=== PATIENT | male | born 1970 | race Caucasian/White ===

== ENCOUNTER 2016-08-11 21:32 | Emergency (ER) | payer MEDICAID ==
[2016-08-11 21:48] VITALS: RESP 16; TEMP 98.4
--- NOTE | 2016-08-11 23:11 | EDPHY ---
H & P Stated Complaint: psych eval Time Seen by Provider: 08/11/16 22:57 HPI/ROS: HPI The patient presents with concern about his medications. Earlier this morning, he was dismissed from his psychiatrist practice, he says he is not sure why and this was somewhat abrupt to him. They were working on some medication changes and he is not sure how to proceed. He has been on Lamictal with an increased dose in the last month from 200 mg to 300 mg. He also is on trazodone 50 mg, though previously has been on 100 mg. He is wanting to know if he can increase his trazodone dose as he feels he with this would help his symptoms of increased agitation. He denies any SI or HI. He has been referred to a new psychiatrist.. REVIEW OF SYSTEMS Constitutional: No fever, no chills. Eyes: No discharge. ENT: No sore throat. Cardiovascular: No chest pain, no palpitations. Respiratory: No cough, no shortness of breath. Gastrointestinal: No abdominal pain, no vomiting. Genitourinary: No hematuria. Musculoskeletal: No back pain. Skin: No rashes. Neurological: No headache. PMHx: Depression PHYSICAL General Appearance: Alert, no distress Eyes: Pupils equal and round no pallor or injection ENT, Mouth: Mucous membranes moist Respiratory: Breathing comfortably Neurological: A&O, moves all extremities Skin: Warm and dry, no rashes Musculoskeletal: Neck is supple non tender Extremities: symmetrical, full range of motion Psychiatric: Patient is oriented X 3, there is no agitation Source: Patient Exam Limitations: No limitations - Personal History Current Tetanus/Diphtheria Vaccine: Yes Current Tetanus Diphtheria and Acellular Pertussis (TDAP): Yes - Medical/Surgical History Hx Asthma: No Hx Chronic Respiratory Disease: No Hx Diabetes: No Hx Cardiac Disease: No Hx Renal Disease: No Hx Cirrhosis: No Hx Alcoholism: No Hx HIV/AIDS: No Hx Splenectomy or Spleen Trauma: No Other PMH: jaw surgery, lasic, depression, ADHD - Social History Smoking Status: Never smoked Constitutional: Initial Vital Signs Temperature (C) 36.9 C 08/11/16 21:45 Heart Rate 89 08/11/16 21:45 Respiratory Rate 16 08/11/16 21:45 Blood Pressure 142/107 H 08/11/16 21:45 O2 Sat (%) 96 08/11/16 21:45 O2 Delivery Mode Room Air Allergies/Adverse Reactions: escitalopram [From Lexapro] Allergy (Verified 08/11/16 21:45) Home Medications: Medication Instructions Recorded LaMICtal 08/11/16 Prozac 10 MG (*) 08/11/16 Vyvanse 08/11/16 traZODone 08/11/16 traZODone [traZODONE 100MG (*)] 100 mg PO HS #30 tab 08/11/16 Medical Decision Making Differential Diagnosis: This is a 46-year-old man with depression, today, dismissed from his psychiatrist practice. He has some questions about his medications. I think it is reasonable to increase to his previous trazodone dose if he is feeling more agitated than usual. I advised him if he is going to change this, he should keep all of his other medication doses the same. He is in agreement with this. I will have the mental health worker speak with him about additional resources while he is in between psychiatrist. Departure - Departure Disposition: Home, Routine, Self-Care Clinical Impression: Medication dose changed Condition: Good Instructions: Depression (ED) Additional Instructions: You should be taking Lamictal 300 mg before bedtime, trazodone 100 mg before bedtime, Prozac 60 mg in the morning, Vyvanse 20 mg in the morning. Referrals: Wendy Canchola MD [Primary Care Provider] - As per Instructions Prescriptions: traZODone [traZODONE 100MG (*)] 100 mg PO HS #30 tab
[2016-08-12 02:57] VITALS: BP 136/74; PULSE 70; O2SAT 93
== END 2016-08-12 02:45 | disposition home or self-care (01) ==
DX: Z76.0 Encounter for issue of repeat prescription (principal)